=== PATIENT | male | born 1955 | race African-American/Black ===

== ENCOUNTER 2022-10-28 11:25 | Inpatient (IN) | payer BC, OTHER ==
[2022-10-28] MEDS ORDERED: VANCOMYCIN 1 GM in D5W (PRE-DOCKED) 1,000 MG/250 ML (RESTRICTED TO ID ONLY IVPB ONE (12:39)
[2022-10-28] MEDS ORDERED: VANCOMYCIN/WATER FOR INJ (PEG) 1,000 MG/200 ML BAG IVPB ONE (13:00)
[2022-10-28] MEDS ORDERED: ACETAMINOPHEN 1000 MG/100 ML BAG IVPB ONE (13:00)
[2022-10-28] MEDS ORDERED: ACETAMINOPHEN INJECTION 100 ML IVPB ONE (13:23)
[2022-10-28 14:26] LABS: BASO % 0.4 % (0-2.0); EOS % 0.5 % (0-4.5); HEMATOCRIT 45.1 % (35.4-49); HEMOGLOBIN 14.7 GM/dL (11.7-16.9); LYMPH % 10.6 % (8-40); MCH 27.6 pg (25.7-33.7); MCHC 32.6 g/dl (32.0-35.9); MEAN CELL VOLUME 84.8 fl (80-96); MEAN PLT VOLUME 9.2 fl (7.5-11.1); MONO % 15.2 % (3.8-10.2); NEUT % 73.3 % (42.8-82.8); PLATELET COUNT 536 10^3/uL (134-434); RBC 5.33 M/mm3 (4.00-5.60); RDW 15.5 % (11.9-15.9); WHITE BLOOD COUNT 12.2 K/mm3 (4.0-10.0)
[2022-10-28 14:44] LABS: POTASSIUM 4.9 mmol/L (3.5-5.1)
[2022-10-28 14:46] LABS: CALCIUM 9.4 mg/dL (8.5-10.1)
[2022-10-28 14:47] LABS: ALBUMIN 3.8 g/dl (3.4-5.0); BLOOD UREA NITROGEN 14.4 mg/dL (7-18)
[2022-10-28 14:50] LABS: CREATININE 1.1 mg/dL (0.55-1.3)
[2022-10-28 14:51] LABS: BILIRUBIN,TOTAL 0.8 mg/dL (0.2-1); TOT PROT 8.2 g/dl (6.4-8.2)
[2022-10-28] MEDS ORDERED: KETOROLAC TROMETHAMINE 30 MG/1 ML VIAL IVPUSH ONE (14:53)
[2022-10-28] MEDS ORDERED: KETOROLAC TROMETHAMINE 30 MG/1 ML VIAL ONE (15:22)
[2022-10-28] MEDS ORDERED: amLODIPine BESYLATE 10 MG TABLET (FP) PO ONE (15:52)
[2022-10-28] MEDS ORDERED: ACETAMINOPHEN 325 MG TABLET (FP) PO PRN (15:55)
[2022-10-28] MEDS ORDERED: amLODIPine BESYLATE 10 MG TABLET (FP) ONE (16:08)
[2022-10-28 18:41] VITALS: BMI 27.5
[2022-10-29] MEDS: HYDROCHLOROTHIAZIDE 25 MG TABLET (FP) PO SCH (09:42)
[2022-10-29] MEDS: PANTOPRAZOLE 40 MG TABLET PO SCH (09:42)
[2022-10-29] MEDS: LOSARTAN POTASSIUM 50 MG TABLET PO SCH (09:42)
[2022-10-29] MEDS: ASPIRIN COATED 81 MG TABLET.EC PO SCH (09:42)
[2022-10-29] MEDS ORDERED: VANCOMYCIN 1 GM in D5W (PRE-DOCKED) 1,000 MG/250 ML (RESTRICTED TO ID ONLY IVPB SCH (10:00)
[2022-10-29] MEDS ORDERED: VANCOMYCIN/WATER FOR INJ (PEG) 1,000 MG/200 ML BAG IVPB ONE (10:00)
[2022-10-29 10:31] LABS: BASO % 0.5 % (0-2.0); EOS % 0.4 % (0-4.5); HEMATOCRIT 41.7 % (35.4-49); HEMOGLOBIN 13.6 GM/dL (11.7-16.9); LYMPH % 10.1 % (8-40); MCH 27.9 pg (25.7-33.7); MCHC 32.6 g/dl (32.0-35.9); MEAN CELL VOLUME 85.4 fl (80-96); MEAN PLT VOLUME 9.7 fl (7.5-11.1); MONO % 9.8 % (3.8-10.2); NEUT % 79.2 % (42.8-82.8); PLATELET COUNT 511 10^3/uL (134-434); RBC 4.88 M/mm3 (4.00-5.60); RDW 15.1 % (11.9-15.9); WHITE BLOOD COUNT 12.2 K/mm3 (4.0-10.0)
[2022-10-29 10:43] LABS: POTASSIUM 4.6 mmol/L (3.5-5.1)
[2022-10-29 10:48] LABS: BLOOD UREA NITROGEN 13.1 mg/dL (7-18); CALCIUM 8.8 mg/dL (8.5-10.1)
[2022-10-29 10:49] LABS: ALBUMIN 3.2 g/dl (3.4-5.0)
[2022-10-29 10:52] LABS: CREATININE 1.1 mg/dL (0.55-1.3)
[2022-10-29 10:53] LABS: BILIRUBIN,TOTAL 0.8 mg/dL (0.2-1); TOT PROT 7.6 g/dl (6.4-8.2)
[2022-10-29] MEDS: PIPERACILLIN/TAZOB 3.375 GM 3.375 GM in DEXTROSE 5%-WATER - 50 ML IVPB SCH ×2 (15:48→18:28)
[2022-10-29] MEDS: VANCOMYCIN/WATER 1250 MG 1,250 MG/250 ML BAG IVPB SCH (22:09)
[2022-10-30] MEDS: PIPERACILLIN/TAZOB 3.375 GM 3.375 GM in DEXTROSE 5%-WATER - 50 ML IVPB SCH ×3 (01:36→17:23)
[2022-10-30] MEDS: ASPIRIN COATED 81 MG TABLET.EC PO SCH (10:00)
[2022-10-30] MEDS: HYDROCHLOROTHIAZIDE 25 MG TABLET (FP) PO SCH (10:00)
[2022-10-30] MEDS: PANTOPRAZOLE 40 MG TABLET PO SCH (10:00)
[2022-10-30] MEDS: LOSARTAN POTASSIUM 50 MG TABLET PO SCH (10:00)
[2022-10-30] MEDS: VANCOMYCIN/WATER 1250 MG 1,250 MG/250 ML BAG IVPB SCH ×2 (10:40→21:59)
[2022-10-30 18:36] VITALS: RESP 18
[2022-10-31] MEDS: PIPERACILLIN/TAZOB 3.375 GM 3.375 GM in DEXTROSE 5%-WATER - 50 ML IVPB SCH ×2 (01:14→09:32)
[2022-10-31 09:01] VITALS: BP 120/73; PULSE 71; TEMP 98.4
[2022-10-31] MEDS: LOSARTAN POTASSIUM 50 MG TABLET PO SCH (09:32)
[2022-10-31] MEDS: PANTOPRAZOLE 40 MG TABLET PO SCH (09:32)
[2022-10-31] MEDS: VANCOMYCIN/WATER 1250 MG 1,250 MG/250 ML BAG IVPB SCH (09:32)
[2022-10-31] MEDS: HYDROCHLOROTHIAZIDE 25 MG TABLET (FP) PO SCH (09:32)
[2022-10-31] MEDS: ASPIRIN COATED 81 MG TABLET.EC PO SCH (09:32)
[2022-10-31] MEDS ORDERED: SULFAMETHOXAZOLE/TRIMETHOPRIM 800MG/160MG D.S. TABLET PO SCH (22:00)
== END 2022-10-31 16:22 | disposition home or self-care (01) | DRG 603 ==
LOC: JER 11:25 → JERBED 12:47 → J5S 17:51
PROVIDERS: ADMIT Internal Medicine; ATTEND Internal Medicine
DX: L03.114 Cellulitis of left upper limb (principal); L02.414 Cutaneous abscess of left upper limb; K21.9 Gastro-esophageal reflux disease without esophagitis; I10 Essential (primary) hypertension
CPT/HCPCS: 36415; 73060-TC-LT-FY; 73070-TC-LT-FY; 73201-TC-RT; 80053; 85025; 87040; 87070; 87186; 87205; 93005; 93010; 99285-25; Q9967

== ENCOUNTER 2024-06-26 18:30 | Inpatient (IN) | payer BC, OTHER ==
[2024-06-26 18:41] VITALS: BMI 31.8
[2024-06-26 20:30] LABS: ABSOLUTE IMMATURE GRANULOCYTES 0.09 x10^3/uL (0.0-0.031); BASOPHILS # 0.01 x10^3/uL (0.01-0.08); EOSINOPHIL % 0.3 % (0.8-7.0); EOSINOPHILS # 0.03 x10^3/uL (0.04-0.54); HEMATOCRIT 40.7 % (40.1-51.0); HEMOGLOBIN 12.7 g/dL (13.7-17.5); MCHC 31.2 g/dl (32.3-36.5); MEAN CELL VOLUME 86.6 fl (79.0-92.2); MEAN PLT VOLUME 11.2 fl (9.4-12.4); MONOCYTE # 0.49 x10^3/uL (0.30-0.82); MONOCYTE % 5.3 % (5.3-12.2); PLATELET COUNT # 646 x10^3/uL (163-337); RDW 15.8 % (12.2-16.4)
[2024-06-26 20:38] LABS: INR 1.37 (0.83-1.09); PROTHROMBIN TIME (PATIENT) 15.1 SEC (9.7-13.0)
[2024-06-26 20:40] LABS: ACTIVATED PTT 30.6 SECONDS (25.2-36.5)
[2024-06-26 21:02] LABS: POTASSIUM 4.5 mmol/L (3.5-5.1)
[2024-06-26 21:04] LABS: CALCIUM 8.6 mg/dL (8.5-10.1)
[2024-06-26 21:05] LABS: ALBUMIN 3.3 g/dl (3.4-5.0); BLOOD UREA NITROGEN 18.2 mg/dL (7-18)
[2024-06-26 21:08] LABS: CREATININE 1.4 mg/dL (0.55-1.3)
[2024-06-26 21:09] LABS: BILIRUBIN,TOTAL 0.4 mg/dL (0.2-1)
[2024-06-26 21:47] LABS: HIV INTERPRETATION NEGATIVE (NEGATIVE)
[2024-06-26] MEDS: SODIUM CHLORIDE 0.9% 500 ML INFUS.BAG IV ONE (21:59)
[2024-06-26 22:11] LABS: HCV DIAGNOSTIC IN-HOUSE W/RFLX REACTIVE (NONREACTIVE)
[2024-06-27] MEDS: PANTOPRAZOLE SODIUM 40 MG VIAL IVPUSH ONE (00:13)
[2024-06-27 00:23] LABS: ABSOLUTE IMMATURE GRANULOCYTES 0.15 x10^3/uL (0.0-0.031); BASOPHILS # 0.01 x10^3/uL (0.01-0.08); EOSINOPHIL % 0.2 % (0.8-7.0); EOSINOPHILS # 0.02 x10^3/uL (0.04-0.54); HEMATOCRIT 36.5 % (40.1-51.0); HEMOGLOBIN 11.6 g/dL (13.7-17.5); MCHC 31.8 g/dl (32.3-36.5); MEAN CELL VOLUME 85.9 fl (79.0-92.2); MEAN PLT VOLUME 11.3 fl (9.4-12.4); MONOCYTE # 0.41 x10^3/uL (0.30-0.82); MONOCYTE % 4.4 % (5.3-12.2); PLATELET COUNT # 563 x10^3/uL (163-337); RDW 15.6 % (12.2-16.4)
[2024-06-27] MEDS: PANTOPRAZOLE SODIUM 80 MG in SODIUM CHLORIDE 100 ML IVPB SCH (00:58)
[2024-06-27] MEDS: SODIUM CHLORIDE 1,000 ML IV SCH (03:28)
[2024-06-27 09:39] LABS: IRON SERUM 96 ug/dL (50-175)
[2024-06-27 09:44] LABS: TOTAL IRON BINDING CAPACITY 261 ug/dL (250-450)
[2024-06-27 09:55] LABS: ABSOLUTE IMMATURE GRANULOCYTES 0.09 x10^3/uL (0.0-0.031); BASOPHILS # 0.01 x10^3/uL (0.01-0.08); EOSINOPHIL % 0.1 % (0.8-7.0); EOSINOPHILS # 0.01 x10^3/uL (0.04-0.54); HEMATOCRIT 34.5 % (40.1-51.0); HEMOGLOBIN 10.8 g/dL (13.7-17.5); MCHC 31.3 g/dl (32.3-36.5); MEAN CELL VOLUME 86.5 fl (79.0-92.2); MONOCYTE # 0.78 x10^3/uL (0.30-0.82); MONOCYTE % 9.4 % (5.3-12.2); PLATELET COUNT # 556 x10^3/uL (163-337); RDW 15.5 % (12.2-16.4)
[2024-06-27] MEDS ORDERED: amLODIPine BESYLATE 5 MG TABLET (FP) ONE (14:04)
[2024-06-27] MEDS: amLODIPine BESYLATE 5 MG TABLET (FP) PO SCH (14:18)
[2024-06-27 17:58] LABS: URINE APPEARANCE CLEAR; URINE BILIRUBIN NEGATIVE (NEGATIVE); URINE COLOR YELLOW; URINE GLUCOSE (UA) NEGATIVE (NEGATIVE); URINE KETONE NEGATIVE (NEGATIVE); URINE LEUK ESTERASE NEGATIVE (NEGATIVE); URINE NITRITE NEGATIVE (NEGATIVE); URINE PROTEIN NEGATIVE (NEGATIVE); URINE UROBILINOGEN 0.2 mg/dL (0.2-1.0)
[2024-06-28 06:47] LABS: ABSOLUTE IMMATURE GRANULOCYTES 0.04 x10^3/uL (0.0-0.031); BASOPHILS # 0.02 x10^3/uL (0.01-0.08); EOSINOPHIL % 0.5 % (0.8-7.0); EOSINOPHILS # 0.02 x10^3/uL (0.04-0.54); HEMATOCRIT 28.8 % (40.1-51.0); HEMOGLOBIN 9.3 g/dL (13.7-17.5); MCHC 32.3 g/dl (32.3-36.5); MEAN CELL VOLUME 86.5 fl (79.0-92.2); MONOCYTE # 0.59 x10^3/uL (0.30-0.82); MONOCYTE % 13.8 % (5.3-12.2); PLATELET COUNT # 446 x10^3/uL (163-337); RDW 15.7 % (12.2-16.4)
[2024-06-28 07:13] LABS: POTASSIUM 4.2 mmol/L (3.5-5.1)
[2024-06-28 07:14] LABS: INR 1.39 (0.83-1.09); PROTHROMBIN TIME (PATIENT) 15.1 SEC (9.7-13.0)
[2024-06-28 07:18] LABS: CALCIUM 8.1 mg/dL (8.5-10.1)
[2024-06-28 07:19] LABS: ALBUMIN 2.9 g/dl (3.4-5.0)
[2024-06-28 07:21] LABS: CREATININE 0.9 mg/dL (0.55-1.3)
[2024-06-28 07:23] LABS: BILIRUBIN,TOTAL 0.7 mg/dL (0.2-1); TOT PROT 5.8 g/dl (6.4-8.2)
[2024-06-29 06:22] VITALS: RESP 18
[2024-06-29 12:23] VITALS: BP 122/80; PULSE 82; TEMP 97.9
== END 2024-06-29 12:29 | disposition home or self-care (01) | DRG 392 ==
LOC: JER 18:30 → JERBED 06-27 01:06 → J2W 06-28 01:03
PROVIDERS: ADMIT Hospitalist; ATTEND Family Medicine
DX: A09 Infectious gastroenteritis and colitis, unspecified (principal); B19.20 Unspecified viral hepatitis C without hepatic coma; K21.9 Gastro-esophageal reflux disease without esophagitis; I10 Essential (primary) hypertension; K76.0 Fatty (change of) liver, not elsewhere classified
CPT/HCPCS: 0241U-QW; 36415; 71045-TC-FY; 74174-TC; 80053; 81003; 82272; 82570; 82728; 83540; 83550; 83735; 84155; 84156; 84165; 84484; 85025; 85610; 85730; 86160; 86803; 86850; 86900; 86901; 87045; 87046; 87205; 87389; 87522; 93005; 93010; 99285-25